=== PATIENT | female | born 1985 | race Caucasian/White ===

== ENCOUNTER 2018-07-09 13:19 | Emergency (ER) | payer MEDICAID, OTHER ==
--- NOTE | 2018-07-09 13:51 | Emergency Department Record ---
History of Present Illness - General Chief complaint: Female Urogenital Problem Stated complaint: ABDOMINAL CRAMPING, Time Seen by Provider: 07/09/18 13:44 Source: Patient, RN notes reviewed Mode of Arrival: Ambulatory - History of Present Illness Initial comments: two weeks of abdominal cramping and nausea and vomiting and diarrhea more diarrhea two weeks ago and she said was seen by [employer] and preg test negative. She had a tubal ligation 4 months ago and she has three children and breast feeding a 4 month old and a 2 year old. Abd cramping on and off and no abdominal pain no w. [facility] [place] and preg test neg. She was tod it was a virus "the Flu" . patient states no vomiting or diarrhea for 4 days just abdominal cramping and she is using ibuprofin and helping but not going away. MD Complaint: Dysuria Onset/Timin -: Week(s) Severity: Moderate Severity scale (1-10): 7 Quality: Cramping Consistency: Intermittent Improves with: None Worsens with: None Patient : No - Related Data Home Medications Medication Instructions Recorded Confirmed Last Taken Sertraline HCl [Zoloft] 150 mg PO DAILY 07/09/18 07/09/18 06/25/18 Previous Rx's Medication Instructions Recorded Ondansetron HCl [Zofran] 4 mg PO Q6HR #10 tablet 07/09/18 Sulfamethoxazole/Trimethoprim 1 each PO BID #20 tablet 07/09/18 [Bactrim Ds Tablet] Allergies Allergy/AdvReac Type Severity Reaction Status Date / Time codeine AdvReac NAUSEA Verified 07/09/18 13:25 hydrocodone [From Vicodin] AdvReac NAUSEA Verified 07/09/18 13:25 Travel Screening - Travel/Exposure Within Last 30 Days Have you traveled within the last 30 days?: No - Travel/Exposure Within Last Year Have you traveled outside the [place] in the last year?: No - Additonal Travel Details Have you been exposed to anyone with a communicable illness?: No - Travel Symptoms Symptom Screening: None Review of Systems Reviewed: No additional complaints except as noted below Constitutional: Reports: As per HPI. Denies: Chills, Fever, Malaise, Night sweats, Weakness, Weight change Eyes: Reports: As per HPI. Denies: Eye discharge, Eye pain, Photophobia, Vision change ENT: Reports: As per HPI. Denies: Congestion, Dental pain, Ear pain, Epistaxis, Hearing loss, Throat pain Respiratory: Reports: As per HPI. Denies: Cough, Dyspnea, Hemoptysis, Stridor, Wheezes Cardiovascular: Reports: As per HPI. Denies: Arrhythmia, Chest pain, Dyspnea on exertion, Edema, Murmurs, Orthopnea, Palpitations, Paroxysmal nocturnal dyspnea, Rheumatic Fever, Syncope Endocrine: Reports: As per HPI. Denies: Fatigue, Heat or cold intolerance, Polydipsia, Polyuria Gastrointestinal: Reports: As per HPI, Abdominal pain. Denies: Constipation, Diarrhea, Hematemesis, Hematochezia, Melena, Nausea, Vomiting Genitourinary: Reports: As per HPI. Denies: Abnormal menses, Discharge, Dyspareunia, Dysuria, Frequency, Hematuria, Incontinence, Retention, Urgency Musculoskeletal: Reports: As per HPI. Denies: Arthralgia, Back pain, Gout, Joint swelling, Myalgia, Neck pain Skin: Reports: As per HPI. Denies: Bruising, Change in color, Change in hair/nails, Lesions, Pruritus, Rash Neurological: Reports: As per HPI. Denies: Abnormal gait, Confusion, Headache, Numbness, Paresthesias, Seizure, Tingling, Tremors, Vertigo, Weakness Psychiatric: Reports: As per HPI. Denies: Anxiety, Auditory hallucinations, Dep ression, Homicidal thoughts, Suicidal thoughts, Visual hallucinations Hematological/Lymphatic: Reports: As per HPI. Denies: Anemia, Blood Clots, Easy bleeding, Easy bruising, Swollen glands Past Medical History - SOCIAL HISTORY Smoking Status: Light tobacco smoker (<10/day) Alcohol Use: None Drug Use: None - RESPIRATORY Hx Respiratory Disorders: No - CARDIOVASCULAR Hx Cardio Disorders: No - NEURO Hx Neuro Disorders: No - GI Hx GI Disorders: No - Hx Genitourinary Disorders: No - ENDOCRINE Hx Endocrine Disorders: No - MUSCULOSKELETAL Hx Musculoskeletal Disorders: No - PSYCH Hx Psych Problems: Yes Hx Anxiety: Yes Hx Depression: Yes - HEMATOLOGY/ONCOLOGY Hx Hematology/Oncology Disorders: No Family Medical History Any Significant Family History?: Yes Hx Cancer: Grandparents Physical Exam - General General Appearance: Alert, Oriented x3, Cooperative, No acute distress - Head Head exam: Normal inspection - Eye Eye exam: Normal appearance, PERRL Pupils: Normal accommodation - ENT ENT exam: Normal exam, Mucous membranes moist, Normal external ear exam, Normal orophraynx, TM's normal bilaterally Ear exam: Normal external inspection. negative: External canal tenderness Nasal Exam: Normal inspection. negative: Discharge, Sinus tenderness Mouth exam: Normal external inspection, Tongue normal Teeth exam: Normal inspection. negative: Dental caries Throat exam: Normal inspection. negative: Tonsillar erythema, Tonsillar exudate - Neck Neck exam: Normal inspection, Full ROM. negative: Tenderness - Respiratory Respiratory exam: Normal lung sounds bilaterally. negative: Respiratory distress - Cardiovascular Cardiovascular Exam: Regular rate, Normal rhythm, Normal heart sounds - GI/Abdominal GI/Abdominal exam: Soft, Normal bowel sounds, Diminished bowel sounds, Tenderness, Other. negative: Distended, Guarding, Hyperactive bowel sounds, Mass, Pulsatile mass, Rebound, Rigid - Rectal Rectal exam: Deferred - exam: Deferred - Extremities Extremities exam: Normal inspection, Full ROM, Normal capillary refill. negative: Tenderness - Back Back exam: Reports: Normal inspection, Full ROM. Denies: Muscle spasm, Rash noted, Tenderness - Neurological Neurological exam: Alert, Normal gait, Oriented X3, Reflexes normal - Psychiatric Psychiatric exam: Normal affect, Normal mood - Skin Skin exam: Dry, Intact, Normal color, Warm Course Vital Signs 07/09/18 13:27 Temperature 98.9 F Pulse Rate 71 Respiratory 18 Rate Blood Pressure 129/78 Pulse Ox 98 Medical Decision Making - Data Complexity MDM Data: Labs Ordered and/or Reviewed (Urine WBC 6-10 with 2 plus bacteria) - Lab Data Result diagrams: 07/09/18 13:50 07/09/18 13:50 Disposition Clinical Impression: Abdominal pain Qualifiers: Abdominal location: lower abdomen, unspecified Qualified Code(s): R10.30 - Lower abdominal pain, unspecified UTI (urinary tract infection) Qualifiers: Urinary tract infection type: acute cystitis Hematuria presence: without hematuria Qualified Code(s): N30.00 - Acute cystitis without hematuria Disposition: Home, Self-Care Condition: (1) Good Instructions: Urinary Tract Infection in Women (ED), Abdominal Pain (ED) Additional Instructions: follow up with Family Dr or OB dr in 3 days start bactrim DS one BID return if abdominal pain is worse Prescriptions: Ondansetron HCl [Zofran] 4 mg PO Q6HR #10 tablet Sulfamethoxazole/Trimethoprim [Bactrim Ds Tablet] 1 each PO BID #20 tablet Forms: Patient Portal Access Time of Disposition: 14:37 Quality - Quality Measures Quality Measures: N/A - Blood Pressure Screening Does Patient Have Any of the Following: No Blood Pressure Classification: Pre-Hypertensive BP Reading Systolic Measurement: 129 Diastolic Measurement: 78 Screening for High Blood Pressure: < Pre-Hypertensive BP, F/U Documented > [[id number]] Pre-Hypertensive Follow-up Interventions: Referral to alternative/primary care provider.
[2018-07-09] MEDS ORDERED: 0.9 % SODIUM CHLORIDE 1,000 ML BAG IV ONE (13:54)
[2018-07-09 14:04] LABS: BASO % 0.2 % (0-6); EOS % 0.7 % (0-6); GRAN % 71.2 % (47-80); HEMOGLOBIN 11.4 gm/dl (11.6-16.0); LYMPH % 14.6 % (16-45); MEAN CORPUSCULAR HGB CONC 32.6 g/dl (32-36); MEAN PLATELET VOLUME 10.1 fl (7.4-10.4); MONO % 13.3 % (0-9); PLATELET COUNT 282 K/uL (130-400); RED BLOOD COUNT 4.07 M/uL (3.80-5.40); RED CELL DISTRIBUTION WIDTH 16.1 % (11.5-14.5); WHITE BLOOD COUNT W/O DIFF 5.3 K/uL (4.2-12.2)
[2018-07-09] MEDS ORDERED: DICYCLOMINE HCL 10 MG/ML AMPUL IM ONE (14:05)
[2018-07-09 14:14] LABS: URINE APPEARANCE CLEAR; URINE BILIRUBIN NEGATIVE (NEGATIVE); URINE BLOOD NEGATIVE (NEGATIVE); URINE COLOR YELLOW; URINE GLUCOSE (UA) NEGATIVE (NEGATIVE); URINE KETONE NEGATIVE (NEGATIVE); URINE LEUKOCYTE ESTERASE TRACE (NEGATIVE); URINE NITRITE NEGATIVE (NEGATIVE); URINE PROTEIN NEGATIVE (NEGATIVE); URINE UROBILINOGEN 0.2 E.U./dL (0.20 - 1.00)
[2018-07-09 14:17] LABS: HCG,QUALITATIVE URINE NEGATIVE (NEGATIVE)
[2018-07-09 14:17] LABS: BLOOD UREA NITROGEN 11 mg/dL (6-20); CREATININE 0.7 mg/dL (0.5-0.9); EST GLOMERULAR FILTRATION RATE > 60 mL/min; LIPASE 32 U/L (13-60); TOTAL PROTEIN 7.3 g/dL (6.6-8.7)
[2018-07-09 14:19] LABS: GLUCOSE,RANDOM 100 mg/dL (74-109)
[2018-07-09 14:22] LABS: ALBUMIN 4.4 g/dL (4.0-5.0); ALKALINE PHOSPHATASE 58 U/L (35-104); ALT/SGPT 18 U/L (<33); AST/SGOT 26 U/L (10.0-35.0)
[2018-07-09 14:27] LABS: URINE BACTERIA 2+; URINE RBC 0 - 2 (NONE SEEN)
[2018-07-09 14:28] LABS: BILIRUBIN,DIRECT < 0.2 mg/dL (0-0.3)
[2018-07-09] MEDS ORDERED: TMP/SMZ 160MG/800MG TAB PO ONE (14:37)
== END 2018-07-09 14:51 | disposition home or self-care (01) ==
LOC: ER 13:19
DX: N30.00 Acute cystitis without hematuria (principal); R11.2 Nausea with vomiting, unspecified; R19.7 Diarrhea, unspecified; F17.210 Nicotine dependence, cigarettes, uncomplicated
CPT/HCPCS: 99284 ×2; 96360; 96372; 83690; 85025; 80076; 80048; 81001; 81025; J3490; J7030